=== PATIENT | female | born 1945 | race Hispanic/Latino ===

== ENCOUNTER 2018-12-03 09:48 | Emergency (ER) | payer MEDICARE ==
[2018-12-03] MEDS ORDERED: Tdap Vaccine 0.5 ml Vial (10-64 yrs) IM ONE ×2 (10:41→11:19)
--- NOTE | 2018-12-03 10:43 | C.PDOC ---
History Of Present Illness 73 y/o female presents to the ED for evaluation s/p fall earlier today. Patient states she was walking when she noticed dog excretion on the ground near a tree. She attempted to step over it but tripped and fell, striking her face and left knee. Patient denies any dizziness, chest pain, or syncope associated with the fall. She also denies LOC, neck pain, chest pain, SOB, nausea, vomiting, or other injuries. Patient was able to get up immediately and is ambulatory in the ED. She cannot recall the last Tetanus booster she received. Time Seen by Provider: 12/03/18 10:41 Chief Complaint (Nursing): Abnormal Skin Integrity History Per: Patient History/Exam Limitations: no limitations Onset/Duration Of Symptoms: Mins Current Symptoms Are (Timing): Still Present Location Of Injury: Left: Knee, Anterior: Face Past Medical History Reviewed: Historical Data, Nursing Documentation, Vital Signs Vital Signs: Last Vital Signs Temp 98.3 F 12/03/18 10:00 Pulse 67 12/03/18 10:00 Resp 18 12/03/18 10:00 BP 198/89 H 12/03/18 10:00 Pulse Ox 97 12/03/18 10:00 - Medical History PMH: Diabetes, HTN, Hypercholesterolemia Family History: States: Unknown Family Hx - Social History Hx Alcohol Use: No Hx Substance Use: No - Immunization History Hx Tetanus Toxoid Vaccination: No Hx Influenza Vaccination: Yes Hx Pneumococcal Vaccination: No Review Of Systems Except As Marked, All Systems Reviewed And Found Negative. Constitutional: Negative for: Fever Eyes: Negative for: Vision Change Cardiovascular: Negative for: Chest Pain, Light Headedness Respiratory: Negative for: Shortness of Breath Gastrointestinal: Negative for: Nausea, Vomiting Musculoskeletal: Positive for: Leg Pain (Left knee pain). Negative for: Neck Pain, Back Pain Skin: Positive for: Other (Abrasion to left knee and nose). Negative for: Bruising Neurological: Negative for: Weakness, Numbness, Headache, Dizziness Physical Exam - Physical Exam Appears: Non-toxic, No Acute Distress Skin: Warm, Dry Head: Atraumatic, Normacephalic Eye(s): bilateral: Normal Inspection (conjunctiva clear), PERRL, EOMI Nose: No Epistaxis, No Deformity, Other (Abrasion to bridge of nose) Oral Mucosa: Moist Neck: Normal ROM, No Midline Cervical Tenderness, No Step Off Deformity, Supple Chest: Symmetrical Cardiovascular: Rhythm Regular, No Murmur Respiratory: Normal Breath Sounds, No Accessory Muscle Use, No Wheezing Gastrointestinal/Abdominal: Soft, No Tenderness, No Distention Back: Normal Inspection Extremity: Capillary Refill (< 2 sec), No Swelling (or ecchymosis) Extremity: Left: Other (Abrasion to left knee), Bilateral: Normal Color And Temperature, Normal ROM (x 4) Pulses: Left Dorsalis Pedis: Normal, Right Dorsalis Pedis: Normal Neurological/Psych: Oriented x3, Normal Speech, Normal Cranial Nerves, Other (No focal deficits) Gait: Steady ED Course And Treatment O2 Sat by Pulse Oximetry: 97 (RA) Pulse Ox Interpretation: Normal Medical Decision Making Medical Decision Making: Plan: Tetanus booster given. Patient found to by hypertensive on arrival, blood pressure 198/89. She reports history of HTN and states she is compliant with taking her medication. Disposition Counseled Patient/Family Regarding: Diagnosis, Need For Followup - Disposition Referrals: Elizabeth Hollingsworth MD [Staff Provider] - Disposition: HOME/ ROUTINE Disposition Time: 12:02 Condition: GOOD Additional Instructions: FRANSISCO BUSH, thank you for letting us take care of you today. Your provider was Evangelina Durbin MD and you were treated for FALL/LACERATION ON FACE. The emergency medical care you received today was directed at your acute symptoms. If you were prescribed any medication, please fill it and take as directed. It may take several days for your symptoms to resolve. Return to the Emergency Department if your symptoms worsen, do not improve, or if you have any other problems. Please contact your doctor in 2 days for a follow up appointment. Bring any paperwork you were given at discharge with you along with any medications you are taking to your follow up visit. Our treatment cannot replace ongoing medical care by a primary care provider outside of the emergency department. Thank you for allowing the [facility] team to be part of your care today. Instructions: Skin Abrasions (DC) Forms: [employer] (Telugu), General Discharge Instructions - POA Present On Arrival: None - Clinical Impression Clinical Impression: Abrasion of nose, Abrasion of knee, left - Scribe Statement The provider has reviewed the documentation as recorded by the Jaime Beasley Provider Attestation: All medical record entries made by the Jaime were at my direction and personally dictated by me. I have reviewed the chart and agree that the record accurately reflects my personal performance of the history, physical exam, medical decision making, and the department course for this patient. I have also personally directed, reviewed, and agree with the discharge instructions and disposition.
[2018-12-03 12:12] VITALS: BP 172/90; PULSE 58; RESP 16; TEMP 98.2; O2SAT 95
== END 2018-12-03 12:15 | disposition home or self-care (01) ==
LOC: C.ER 09:48
DX: S00.31XA Abrasion of nose, initial encounter (principal); S80.212A Abrasion, left knee, initial encounter; W01.0XXA Fall on same level from slipping, tripping and stumbling without subsequent striking against object, initial encounter